=== PATIENT | male | born 1960 | race Caucasian/White ===

== ENCOUNTER → 2020-09-26 | Emergency (ER) | payer BC ==
[~2020-09-26] VITALS: Ht 180.3 cm; Wt 86.2 kg
[~2020-09-26] MED LIST: ORPHENADRINE C100 MG PO
== END | disposition home or self-care (01) ==
LOC: ER 03:39
DX: S46.212A Strain of muscle, fascia and tendon of other parts of biceps, left arm, initial encounter (principal); M79.602 Pain in left arm; X50.0XXA Overexertion from strenuous movement or load, initial encounter; Y93.53 Activity, golf; Y92.39 Other specified sports and athletic area as the place of occurrence of the external cause; Y99.8 Other external cause status